=== PATIENT | male | born 2005 | race Two or more races ===

== ENCOUNTER 2024-09-02 21:22 | Inpatient (IN) | payer SELFPAY ==
[~2024-09-02] VITALS: Ht 177.8 cm; Wt 105.0 kg
--- NOTE | 2024-09-02 22:00 | ED.PDOC ---
History of present illness HPI Comments 19 y.o male presents to the ED for a chief complaint of SOB associated with dry mouth, nausea, vomiting and a cough that started 3 days ago. Patient reports family at home has been sick. Patient has increased SOB today with blood glucose of 375 at home. Patient's blood glucose reads 360 upon ED arrival. He denies any chest pain, fever, chills, diarrhea, abdominal pain, sweats or chills. Time Seen by MD: 21:54 History of present illness: Nurses Notes, Medications, Allergies Allergies: Coded Allergies: NO KNOWN ALLERGIES (Unverified , 09/02/24) Information Source: Patient Mode of Arrival: Ambulatory Timing: Days (3) Duration: Since onset Gregory: Other History of: Diabetes, Insulin use Modifying factors: Nothing Associated signs and symptoms: Other Past Medical History PAST MEDICAL HISTORY: DM Surgical History: Denies all surgeries Family History Family History: Reviewed,noncontributory to illness Social History Smoker: Non-Smoker Alcohol: Denies ETOH Use Drugs: Denies Drug Use Lives In: Home Constitutional: denies: chills, diaphoresis, fatigue, fever, malaise, sweats, weakness, others EENTM: denies: blurred vision, double vision, ear bleeding, ear discharge, ear drainage, ear pain, ear ringing, eye pain, eye redness, hearing loss, mouth pain, mouth swelling, nasal discharge, nose bleeding, nose congestion, nose pain, photophobia, tearing, throat pain, throat swelling, voice changes, others Respiratory: reports: cough, SOB at rest, shortness of breath, SOB with excertion; denies: hemoptysis, orthopnea, stridor, wheezing, others Cardiovascular: denies: chest pain, dizzy spells, diaphoresis, Dyspnea on exertion, edema, irregular heart beat, left arm pain, lightheadedness, palpitations, PND, syncope, others Gastrointestinal: reports: nausea, vomiting; denies: abdomen distended, abdominal pain, blood streaked bowels, constipated, diarrhea, dysphagia, difficulty swallowing, hematemesis, melena, poor appetite, poor fluid intake, rectal bleeding, rectal pain, others Neurological: denies: dizziness, fainting, headache, left sided numbness, left sided weakness, numbness, paresthesia, pre-existing deficit, right sided numbness, right sided weakness, seizure, speech problems, tingling, tremors, weakness, others Musculoskeletal: denies: back pain, gout, joint pain, joint swelling, muscle pain, muscle stiffness, neck pain, others Integumetry: denies: bruises, change in color, change in hair/nails, dryness, laceration, lesions, lumps, rash, wounds, others Allergic/Immunocompromised: denies: Difficulty Healing, Frequent Infections, Hives, Itching, others Hematologic/Lymphatic: denies: anemia, blood clots, easy bleeding, easy bruising, swollen glands, others Endocrine: reports: excessive thirst; denies: excessive hunger, excessive sweating, excessive urination, flushing, intolerance to cold, intolerance to heat, unexplained weight gain, unexplained weight loss, others Psychiatric: denies: anxiety, bipolar disorder, depression, hopeless, panic disorder, schizophrenia, sleepless, suicidal, others All Other Systems: Reviewed and Negative Physical Exam General Appearance: Moderate Distress HEENT: Normal ENT Inspection, Pharynx Normal, TMs Normal Neck: Full Range of Motion, Non-Tender, Normal, Normal Inspection Respiratory: Chest Non-Tender, Lungs Clear, No Accessory Muscle Use, No Respiratory Distress, Normal Breath Sounds Cardiovascular: No Edema, No JVD, No Murmur, No Gallop, Normal Peripheral Pulses, Regular Rate/Rhythm Breast Exam: Deferred Gastrointestinal: No Organomegaly, Non Tender, No Pulsatile Mass, Normal Bowel Sounds, Soft Genitalia: Deferred Pelvic: Deferred Rectal: Deferred Extremities: No calf tenderness, Normal capillary refill, Normal inspection, Normal range of motion, Non-tender, No pedal edema Musculoskeletal : Apperance: Normal Neurologic: Alert, display designer outside II-XII nml as Tested, No Motor Deficits, Normal Affect, Normal Mood, No Sensory Deficits Cerebellar Function: Normal Reflexes: Normal Skin: Dry, Normal Color, Warm Lymphatic: No Adenopathy Was a procedure done? Was a procedure done?: No Differential Diagnosis (DM) Differential Diagnosis: Dehydration, Diabetic Coma, DKA, Electrolyte Abnormality, Hyperglycemia, Hyperosmolar State X-Ray, Labs, Meds, VS Vital Signs Date Time Temp Pulse Resp B/P (MAP) Pulse Ox O2 Delivery O2 Flow Rate FiO2 09/02/24 22:01 97 Room Air* 0 21 09/02/24 22:01 97.9 140 22 175/106 (129) 97 Lab Test 09/02/24 22:13 09/02/24 22:00 Range/Units White Blood Count 7.1 4.4-10.8 10^3/uL Red Blood Count 5.62 4.5-5.90 10^6/uL Hemoglobin 18.8 H 13.5-17.5 g/dL Hematocrit 54.9 H 41.0-53.0 % Mean Corpuscular Volume 97.7 80.0-100.0 fL Mean Corpuscular Hemoglobin 33.5 H 28.0-32.0 pg Mean Corpuscular Hemoglobin Concent 34.3 32.0-36.0 g/dL Red Cell Distribution Width 12.8 11.8-14.3 % Platelet Count 168 140-450 10^3/uL Mean Platelet Volume 9.3 6.9-10.8 fL Neutrophils (%) (Auto) 73.6 37.0-80.0 % Lymphocytes (%) (Auto) 10.9 10.0-50.0 % Monocytes (%) (Auto) 15.2 H 0.0-12.0 % Eosinophils (%) (Auto) 0.0 0.0-7.0 % Basophils (%) (Auto) 0.3 0.0-2.0 % Neutrophils # (Auto) 5.2 1.6-8.6 10 ^3/uL Lymphocytes # (Auto) 0.8 0.4-5.4 10 ^3/uL Monocytes # (Auto) 1.1 0-1.3 10 ^3/uL Eosinophils # (Auto) 0 0-0.8 10 ^3/uL Basophils # (Auto) 0 0-0.2 10 ^3/uL Nucleated Red Blood Cells 0.2 % Sodium Level 135 L 136-145 mmol/L Potassium Level 4.0 3.5-5.1 mmol/L Chloride Level 101 98-107 mmol/L Carbon Dioxide Level < 10 *L 20-31 mmol/L Anion Gap 24.98581 H 5-15 Blood Urea Nitrogen < 5 L 9-23 mg/dL Creatinine 1.45 H 0.700-1.30 mg/dL Glomerular Filtration Rate Calc 71 >90 mL/min BUN/Creatinine Ratio 3.4 L 10.0-20.0 Serum Glucose 382 H 74-106 mg/dL Serum Osmolality Pending Calcium Level 9.7 8.7-10.4 mg/dL Phosphorus Level Pending Magnesium Level Pending Total Bilirubin 0.5 0.2-1.0 mg/dL Aspartate Amino Transferase (AST) 9 L 13-40 U/L Alanine Aminotransferase (ALT) 12 7-40 U/L Alkaline Phosphatase 182 H 46-116 U/L Total Protein 9.2 H 5.7-8.2 g/dL Albumin 5.6 H 3.2-4.8 g/dL Beta-Hydroxybutyric Acid Pending Urine Color Light-yellow Yellow Urine Clarity Clear Clear Urine pH 5.5 5.0-9.0 Urine Specific [place] 1.027 1.001-1.035 Urine Protein 2+ H Negative Urine Ketones 4+ H Negative Urine Blood Trace H Negative /uL Urine Nitrite Negative Negative Urine Bilirubin Negative Negative Urine Urobilinogen Normal Negative mg/dL Urine Leukocyte Esterase Negative Negative /uL Urine RBC <1 0 - 3 /hpf Urine WBC <1 0 - 3 /hpf Urine Squamous Epithelial Cells Few <5 /hpf Urine Bacteria None seen None Seen /hpf Urine Hyaline Casts Few 0 - 2 /lpf Urine Mucus Few None Seen Urine Glucose 4+ H Normal mg/dL Influenza Type A Antigen Pending Influenza Type B Antigen Pending SARS-CoV-2 Antigen (Rapid) Pending X-Ray, Labs, Meds, VS Comment Patient will be admitted for diabetic ketoacidosis DKA protocol started in emergency room Imaging: X-rays and CT scans were reviewed and interpreted by this provider, imaging shows no fractures and no pathological disease. Pending radiology review. Patient has prior medical visits reviewed. Med reconciliation performed Vital signs reviewed Time of 1ST Reevaluation: 21:56 Reevaluation 1ST: Unchanged Patient Education/Counseling: Diagnosis, Treatment, Prognosis Family Education/Counseling: No Family Present Departure 1 Departure Time of Disposition: 23:16 Impression: Primary Impression: DKA (diabetic ketoacidosis) Qualified Codes: E11.10 - Type 2 diabetes mellitus with ketoacidosis without coma Disposition: ADMITTED INPATIENT Condition: Guarded Critical Care Note Critical Care Time?: No Stability Stability form required: No I personally scribed for KHURRAM DICK ([email or web address]) on 09/02/24 at 22:00. Electronically submitted by Joaquina Hernandez ([facility]). KHURRAM DICK Sep 02, 2024 22:00
[2024-09-02 22:21] LABS: Urine Bacteria None Seen /hpf (None Seen)
--- NOTE | 2024-09-02 22:31 | DVH ---
CHEST RADIOGRAPH Indication: sob Technique: Single frontal view of the chest was obtained Comparison: None FINDINGS: Lines and Tubes: None Lungs: Clear Pleura: No effusion. No pneumothorax. Cardiomediastinal contours: Unremarkable Bones: Unremarkable IMPRESSION: 1. Clear lungs.
[2024-09-02 22:44] LABS: Basophils # (auto) 0 10 ^3/uL (0-0.2); Basophils % (auto) 0.3 % (0.0-2.0); Eosinophils # (auto) 0 10 ^3/uL (0-0.8); Hematocrit 54.9 % (41.0-53.0); Hemoglobin 18.8 g/dL (13.5-17.5); Lymphocytes # (auto) 0.8 10 ^3/uL (0.4-5.4); Lymphocytes % (auto) 10.9 % (10.0-50.0); Mean Corpuscular Hemoglobin 33.5 pg (28.0-32.0); Mean Corpuscular Hgb Conc. 34.3 g/dL (32.0-36.0); Mean Corpuscular Volume 97.7 fL (80.0-100.0); Monocytes # (auto) 1.1 10 ^3/uL (0-1.3); Monocytes % (auto) 15.2 % (0.0-12.0); Neutrophils # (auto) 5.2 10 ^3/uL (1.6-8.6); Neutrophils % (auto) 73.6 % (37.0-80.0); Nucleated Red Blood Cells % 0.2 %; Platelet Count (auto) 168 10^3/uL (140-450); Red Blood Cells 5.62 10^6/uL (4.5-5.90); Red Cell Distribution Width 12.8 % (11.8-14.3); White Blood Cell 7.1 10^3/uL (4.4-10.8)
[2024-09-02 22:47] LABS: Alanine Aminotransferase 12 U/L (7-40); Anion Gap 24.00001 (5-15); Calcium 9.7 mg/dL (8.7-10.4); Chloride 101 mmol/L (98-107)
[2024-09-02 22:48] LABS: Bilirubin, Total 0.5 mg/dL (0.2-1.0)
[2024-09-02 22:49] LABS: Albumin 5.6 g/dL (3.2-4.8); Alkaline Phosphatase 182 U/L (46-116); Aspartate Aminotransferase 9 U/L (13-40); BUN/Creatinine Ratio 3.4 (10.0-20.0); Blood Urea Nitrogen < 5 mg/dL (9-23); Glucose 382 mg/dL (74-106); Sodium 135 mmol/L (136-145); Total Protein 9.2 g/dL (5.7-8.2)
[2024-09-02 22:50] LABS: Carbon Dioxide < 10 mmol/L (20-31)
[2024-09-02] MEDS ORDERED: SODIUM CHLORIDE 0.9% 1,000 ML IV SCH (23:00)
[2024-09-02] MEDS ORDERED: DEXTROSE (50%) 50ML SYRG IV PRN (23:00)
[2024-09-02 23:05] LABS: Urine Blood TRACE /uL (Negative); Urine Clarity Clear (Clear); Urine Color Light-Yellow (Yellow); Urine Hyaline Cast FEW /lpf (0 - 2); Urine Mucus FEW (None Seen); Urine Protein, UAD 2+ (Negative); Urine Specific Gravity 1.027 (1.001-1.035); Urine Squamous Epithelial Cell FEW /hpf (<5); Urine Urobilinogen Normal (Negative); Urine WBC <1 /hpf (0 - 3); Urine pH 5.5 (5.0-9.0)
[2024-09-02 23:27] LABS: COVID19 ANTIGEN SOFIA FIA NEGATIVE (NEGATIVE); Rapid Influenza B Negative (Negative)
[2024-09-02 23:28] LABS: Rapid Influenza A Positive (Negative)
[2024-09-02] MEDS: SODIUM CHLORIDE 0.9% 1,000 ML IV ONE (23:36)
[2024-09-02 23:44] LABS: Magnesium 1.9 mg/dL (1.6-2.6)
[2024-09-02 23:45] LABS: Phosphorus 3.3 mg/dL (2.4-5.1)
[2024-09-02] MEDS ORDERED: MORPHINE SULFATE INJ 2 MG/ml SYRG IV PRN (23:45)
[2024-09-02] MEDS ORDERED: NITROGLYCERIN 0.4 MG SL TAB SL PRN (23:45)
[2024-09-02] MEDS: INSULIN LANTUS (GLARGINE) 1 /0.01ml (100units/ml) SC ONE (23:46)
--- NOTE | 2024-09-02 23:46 | DVHHPRES ---
History of Present Illness Resident Creating Document: NEEMA ROJO RESIDENT History of Present Illness Patient is 19-year-old male with past medical history of type 1 diabetes mellitus diagnosed at age of 13 who came to the hospital with a chief complaint of flu-like symptoms including nausea, vomiting, mild shortness of breath. As per patient he has been contacted with family members who were sick. Per patient, he has been taking insulin regularly, mainly he takes Lantus long- acting and Humalog before each meal. Given worsening flu-like symptoms patient came to the hospital for further evaluation. During initial evaluation patient blood sugar came high at trend 382, anion gap elevated at 24. Patient denying any symptoms including chest pain, cough, sputum production, fever, chills, abdominal pain, dysuria, motor weakness or sensory deficits. Patient will be started on insulin drip. We will be admitted to ICU. Patient denying any other symptoms. Past Medical History Diabetes mellitus type 1 Past Surgical History: None Family History: None Smoke: No ALCOHOL: none Drugs: None Lives: with Family Review of Systems Constitutional: No: Fever, Chills, Sweats, Weakness, Malaise, Other Eyes: No: Pain, Vision change, Conjunctivae inflammation, Eyelid inflammation, Other, Redness ENT: No: Ear pain, Ear discharge, Nose pain, Nose discharge, Nose congestion, Mouth pain, Mouth swelling, Throat pain, Throat swelling, Other Respiratory: Cough Cardiovascular: No: Chest Pain, Palpitations, Orthopnea, Paroxysmal Noc. Dyspnea, Edema, Lt Headedness, Other Gastrointestinal: Nausea, Vomiting; No: Abdominal Pain, Diarrhea, Constipation, Melena, Hematochezia, Other Genitourinary: No Dysuria, No Frequency, No Incontinence, No Hematuria, No Retention, No Other Musculoskeletal: No: other, neck pain, shoulder pain, arm pain, back pain, hand pain, leg pain, foot pain Skin: No: Rash, Lesions, Jaundice, Bruising, Other Neurological: No: Weakness, Numbness, Incoordination, Change in speech, Confusion, Seizures, Other Allergies: Coded Allergies: NO KNOWN ALLERGIES (Unverified , 09/02/24) Medications Current Medications Medications Dose Ordered Sig/Lulú Route Start Time Stop Time Status Last Admin Dose Admin Sodium Chloride 1,000 ml @ 500 mls/hr Q2H IV 09/02/24 23:00 09/03/24 02:59 Insulin Human (Reg)/Sodium Chloride 100 ml @ 0.5 mls/hr Q24H IV 09/02/24 23:00 Dextrose 50 ml UD PRN IV 09/02/24 23:00 Diagnostic Test (Pha) 1 strip Q90MIN 09/03/24 00:00 Nitroglycerin 0.4 mg Q5MINP PRN SL 09/02/24 23:45 UNV Morphine Sulfate 2 mg Q30M PRN IV 09/02/24 23:45 UNV Exam Vital Signs Vital Signs Date Time Temp Pulse Resp B/P (MAP) Pulse Ox O2 Delivery O2 Flow Rate FiO2 09/02/24 22:01 97 Room Air* 0 21 09/02/24 22:01 97.9 140 22 175/106 (129) General Appearance: Alert, Oriented X3 HEENT: Atraumatic, PERRLA Respiratory: Clear to auscultation, Normal air movement Cardiovascular: Regular rate, Normal S1, Normal S2 Abdominal: Normal bowel sounds, Soft, No tenderness Extremities: No clubbing, No cyanosis, No edema Skin: No rashes, No breakdown Neuro: Normal gait, Normal speech, Strength at 5/5 X4 ext Labs/Xrays Labs Test 09/02/24 22:13 09/02/24 22:00 Range/Units White Blood Count 7.1 4.4-10.8 10^3/uL Red Blood Count 5.62 4.5-5.90 10^6/uL Hemoglobin 18.8 H 13.5-17.5 g/dL Hematocrit 54.9 H 41.0-53.0 % Mean Corpuscular Volume 97.7 80.0-100.0 fL Mean Corpuscular Hemoglobin 33.5 H 28.0-32.0 pg Mean Corpuscular Hemoglobin Concent 34.3 32.0-36.0 g/dL Red Cell Distribution Width 12.8 11.8-14.3 % Platelet Count 168 140-450 10^3/uL Mean Platelet Volume 9.3 6.9-10.8 fL Neutrophils (%) (Auto) 73.6 37.0-80.0 % Lymphocytes (%) (Auto) 10.9 10.0-50.0 % Monocytes (%) (Auto) 15.2 H 0.0-12.0 % Eosinophils (%) (Auto) 0.0 0.0-7.0 % Basophils (%) (Auto) 0.3 0.0-2.0 % Neutrophils # (Auto) 5.2 1.6-8.6 10 ^3/uL Lymphocytes # (Auto) 0.8 0.4-5.4 10 ^3/uL Monocytes # (Auto) 1.1 0-1.3 10 ^3/uL Eosinophils # (Auto) 0 0-0.8 10 ^3/uL Basophils # (Auto) 0 0-0.2 10 ^3/uL Nucleated Red Blood Cells 0.2 % Sodium Level 135 L 136-145 mmol/L Potassium Level 4.0 3.5-5.1 mmol/L Chloride Level 101 98-107 mmol/L Carbon Dioxide Level < 10 *L 20-31 mmol/L Anion Gap 24.59042 H 5-15 Blood Urea Nitrogen < 5 L 9-23 mg/dL Creatinine 1.45 H 0.700-1.30 mg/dL Glomerular Filtration Rate Calc 71 >90 mL/min BUN/Creatinine Ratio 3.4 L 10.0-20.0 Serum Glucose 382 H 74-106 mg/dL Calcium Level 9.7 8.7-10.4 mg/dL Total Bilirubin 0.5 0.2-1.0 mg/dL Aspartate Amino Transferase (AST) 9 L 13-40 U/L Alanine Aminotransferase (ALT) 12 7-40 U/L Alkaline Phosphatase 182 H 46-116 U/L Total Protein 9.2 H 5.7-8.2 g/dL Albumin 5.6 H 3.2-4.8 g/dL Urine Color Light-yellow Yellow Urine Clarity Clear Clear Urine pH 5.5 5.0-9.0 Urine Specific [place] 1.027 1.001-1.035 Urine Protein 2+ H Negative Urine Ketones 4+ H Negative Urine Blood Trace H Negative /uL Urine Nitrite Negative Negative Urine Bilirubin Negative Negative Urine Urobilinogen Normal Negative mg/dL Urine Leukocyte Esterase Negative Negative /uL Urine RBC <1 0 - 3 /hpf Urine WBC <1 0 - 3 /hpf Urine Squamous Epithelial Cells Few <5 /hpf Urine Bacteria None seen None Seen /hpf Urine Hyaline Casts Few 0 - 2 /lpf Urine Mucus Few None Seen Urine Glucose 4+ H Normal mg/dL Influenza Type A Antigen Positive Negative Influenza Type B Antigen Negative Negative SARS-CoV-2 Antigen (Rapid) Negative NEGATIVE Assessment/Plan Assessment/Plan Diabetic ketoacidosis Uncontrolled diabetes mellitus type 1, on insulin dependent Non-anion gap metabolic acidosis Influenza A infection. MAIA likely hemodynamically mediated Severe dehydration Obesity Plan/recommendation Continue monitoring fluid status and adjust as needed. The patient has already received 2L of normal saline. Continue the insulin drip to manage hyperglycemia and reduce ketone production. Monitor blood glucose levels closely and adjust the insulin infusion rate as needed. Monitor serum potassium levels frequently. Replace potassium as needed to maintain levels within the normal range (4-5 mEq/L). Check other electrolytes (e.g., magnesium, phosphate) and replace as necessary. Continue to monitor arterial blood gases (ABG) to assess metabolic acidosis. Consider bicarbonate therapy if pH remains critically low (<6.9). Repeat basic metabolic panel (BMP) in 4 hours to reassess electrolyte levels and renal function. Monitor serum osmolality and adjust treatment as needed. Plan to transition from IV insulin to subcutaneous insulin (Lantus) once the anion gap has closed. Administer the first dose of Lantus at least 2 hours before discontinuing the insulin drip. Calculate the total daily dose (TDD) of insulin based on the patient's recent insulin requirements and divide it into basal (Lantus) and prandial (rapid- acting) insulin. Oseltamivir 75 mg p.o. b.i.d. for influenza. possible trigger of diabetic ketoacidosis Diabetic education NPO for now, can start diabetic diet. Goals of care discussed greater than 22 minutes. Full code. Plan discussed with Dr. Snyder. Plan discussed with: Patient My Orders Orders - NEEMA ROJO RESIDENT Procedure Category Date Status Time Admit ADMIT 09/02/24 Transmitted 23:44 Nitroglycerin [facility] 09/02/24 Logged Sublingual (Ntrostat 23:45 Morphine Sulfate PHA 09/02/24 Logged Injection 23:45 Oxygen By Nasal RT 09/02/24 Transmitted Cannula 23:44 Stat Ekg For Chest [facility] 09/02/24 In Process Pain 23:44 Notify Of Changes [facility] 09/02/24 In Process From Base 23:44 Riprap Worker For [facility] 09/02/24 In Process 24 Hours 23:44 Emergency Dysrhythmia [facility] 09/02/24 In Process Protocol 23:44 Rhythm Strips Once [facility] 09/02/24 In Process Every Shift 23:44 Date of Service: Sep 02, 2024 Billing Provider: SEBASTIÁN SNYDER MD Common Visit Codes: [id number] INP/OBS CARE (HIGH) NEEMA ROJO RESIDENT Sep 02, 2024 23:46 SEBASTIÁN SNYDER MD Sep 03, 2024 18:48
[2024-09-03 00:01] LABS: Base Excess -20.4 mmol/L (-2.0-3.0)
[2024-09-03] MEDS: SODIUM CHLORIDE 0.9% 1,000 ML IV ONE (00:02)
[2024-09-03] MEDS: INSULIN DRIP 100 UNIT/100ML 100 ML IV SCH ×2 (00:03→18:12)
[2024-09-03] MEDS: ACCU-CHEK COMFORT CURVE STRIP VI SCH ×3 (00:05→18:12)
[2024-09-03] MEDS: POTASSIUM CHL 20 Meq TABLET PO ONE (00:07)
[2024-09-03 00:09] VITALS: PULSE 139; RESP 27; O2SAT 98
[2024-09-03] MEDS: SODIUM CHLORIDE 0.9% 1,000 ML IV SCH ×2 (00:29→08:12)
[2024-09-03] MEDS: OSELTAMIVIR 75 MG CAP PO ONE (00:29)
[2024-09-03 05:09] LABS: Hematocrit 44.2 % (41.0-53.0); Hemoglobin 15.6 g/dL (13.5-17.5); Mean Corpuscular Hemoglobin 33.3 pg (28.0-32.0); Mean Corpuscular Hgb Conc. 35.3 g/dL (32.0-36.0); Mean Corpuscular Volume 94.3 fL (80.0-100.0); Platelet Count (auto) 149 10^3/uL (140-450); Red Blood Cells 4.69 10^6/uL (4.5-5.90); Red Cell Distribution Width 12.3 % (11.8-14.3); White Blood Cell 5.3 10^3/uL (4.4-10.8)
[2024-09-03 05:22] LABS: Anion Gap 15 (5-15); Sodium 136 mmol/L (136-145)
[2024-09-03 05:23] LABS: Calcium 9.2 mg/dL (8.7-10.4)
[2024-09-03 05:35] LABS: Band Neutrophils % (manual) 0; Basophils % (manual) 0 (0.0-2.0); Blast Cells 0; Eosinophils % (manual) 0 (0-7); Metamyelocytes % 0; Myelocytes % 0; Promyelocytes % 0; Reactive Lymphocytes 0
[2024-09-03 05:38] LABS: BUN/Creatinine Ratio 5.6 (10.0-20.0); Blood Urea Nitrogen < 5 mg/dL (9-23); Carbon Dioxide 12 mmol/L (20-31); Chloride 109 mmol/L (98-107); Glucose 151 mg/dL (74-106); Potassium 3.3 mmol/L (3.5-5.1)
[2024-09-03] MEDS: POTASSIUM CHL 20MEQ/100ML 100 ML IV SCH (07:00)
[2024-09-03] MEDS ORDERED: DEXTROSE (50%) 50ML SYRG IV PRN (07:00)
[2024-09-03] MEDS: InsuLIN REG 1unit/0.01ml Soln (100units/ml) SC SCH ×2 (08:06→21:45)
[2024-09-03] MEDS: INSULIN LANTUS (GLARGINE) 1 /0.01ml (100units/ml) SC SCH (08:14)
[2024-09-03 09:00] VITALS: PULSE 108; RESP 15; O2SAT 96
[2024-09-03] MEDS: OSELTAMIVIR 75 MG CAP PO SCH (10:19)
[2024-09-03 11:44] LABS: Chloride 106 mmol/L (98-107); Potassium 4.1 mmol/L (3.5-5.1); Sodium 136 mmol/L (136-145)
[2024-09-03 11:46] LABS: Anion Gap 19 (5-15); Calcium 9.2 mg/dL (8.7-10.4)
[2024-09-03 11:51] LABS: BUN/Creatinine Ratio 6.7 (10.0-20.0)
[2024-09-03 11:56] LABS: Blood Urea Nitrogen 6 mg/dL (9-23); Carbon Dioxide 11 mmol/L (20-31); Glucose 280 mg/dL (74-106)
[2024-09-03 13:00] LABS: Lymphocytes % (manual) 26 (10.0-50.0); Monocytes % (manual) 14 (0-12); Platelet Estimate Adequate
[2024-09-03 16:30] LABS: Chloride 106 mmol/L (98-107); Potassium 3.8 mmol/L (3.5-5.1)
[2024-09-03 16:31] LABS: Anion Gap 20 (5-15); Calcium 9.1 mg/dL (8.7-10.4)
[2024-09-03 16:36] LABS: BUN/Creatinine Ratio 4.5 (10.0-20.0)
[2024-09-03 16:37] LABS: Magnesium 1.7 mg/dL (1.6-2.6)
[2024-09-03 16:45] LABS: Blood Urea Nitrogen 5 mg/dL (9-23); Glucose 310 mg/dL (74-106); Sodium 136 mmol/L (136-145)
[2024-09-03 16:49] LABS: Carbon Dioxide 10 mmol/L (20-31)
[2024-09-03 17:23] LABS: Base Excess -12.9 mmol/L (-2.0-3.0)
[2024-09-03] MEDS: D5W/SOD CHLO 0.9% 1,000 ML IV SCH (18:12)
--- NOTE | 2024-09-03 18:41 | DVHPN2 ---
Subjective Seen and examined at bedside. Patient went back into DKA, make NPO. Cont Insulin drip. Cont IVF. Changes from previous H/P or p: No Changes Eyes: No Pain, No Vision change, No Conjunctivae inflammation, No Eyelid inflammation, No Other, No Redness ENT: No Ear pain, No Ear discharge, No Nose pain, No Nose discharge, No Nose congestion, No Mouth pain, No Mouth swelling, No Throat pain, No Throat swelling, No Other Cardiovascular: No Chest Pain, No Palpitations, No Orthopnea, No Paroxysmal Noc. Dyspnea, No Edema, No Lt Headedness, No Other Respiratory: Cough Gastrointestinal: No Nausea, No Vomiting, No Abdominal Pain, No Diarrhea, No Constipation, No Melena, No Hematochezia, No Other Genitourinary: No Dysuria, No Frequency, No Incontinence, No Hematuria, No Retention, No Other Musculoskeletal: No other, No neck pain, No shoulder pain, No arm pain, No back pain, No hand pain, No leg pain, No foot pain Skin: No Rash, No Lesions, No Jaundice, No Bruising, No Other Objective Vitals Vital Signs Date Time Temp Pulse Resp B/P (MAP) Pulse Ox O2 Delivery O2 Flow Rate FiO2 09/03/24 16:02 97 09/03/24 14:00 19 104/67 (79) 95 09/03/24 09:00 Room Air* 0 21 09/02/24 23:40 97.4 97.4 General Appearance: Alert, Oriented X3, Cooperative, No acute distress HEENT: Atraumatic Lungs: Clear to auscultation Cardiovascular: Regular rate, Normal S1, Normal S2 Abdomen: Normal bowel sounds, Soft Rectal: Deferred Psych/Mental Status: Mental status NL Medications Current Medications Medications Dose Ordered Sig/Lulú Route Start Time Stop Time Status Last Admin Dose Admin Diagnostic Test (Pha) 1 strip Q90MIN 09/03/24 00:00 09/03/24 13:30 1 STRIP Nitroglycerin 0.4 mg Q5MINP PRN SL 09/02/24 23:45 Morphine Sulfate 2 mg Q30M PRN IV 09/02/24 23:45 Oseltamivir Phosphate 75 mg Q12HR PO 09/03/24 10:00 09/08/24 09:59 09/03/24 10:19 75 MG Sodium Chloride 1,000 ml @ 100 mls/hr Q10H IV 09/03/24 07:00 09/03/24 08:12 100 MLS/HR Insulin Glargine 15 units QAM SC 09/03/24 07:00 09/03/24 08:14 15 UNITS Diagnostic Test (Pha) 1 strip ACHS 09/03/24 07:00 09/03/24 11:30 1 STRIP Insulin Human Regular HS SC 09/03/24 22:00 Insulin Human Regular AC SC 09/03/24 07:00 09/03/24 12:18 9 UNITS Dextrose 50 ml UD PRN IV 09/03/24 07:00 Insulin Human (Reg)/Sodium Chloride 100 ml @ 0.5 mls/hr Q24H IV 09/03/24 17:15 09/03/24 18:12 3 MLS/HR Diagnostic Test (Pha) 1 strip Q90MIN 09/03/24 18:00 09/03/24 18:12 1 STRIP Dextrose/Sodium Chloride 1,000 ml @ 75 mls/hr [id number] IV 09/03/24 17:15 09/03/24 18:12 75 MLS/HR Laboratory Results Laboratory Tests 09/03/24 04:32 09/03/24 15:58 Chemistry Test 09/02/24 22:13 09/03/24 04:32 09/03/24 11:10 09/03/24 15:58 Albumin 5.6 g/dL (3.2-4.8) H Calcium Level 9.7 mg/dL (8.7-10.4) 9.2 mg/dL (8.7-10.4) 9.2 mg/dL (8.7-10.4) 9.1 mg/dL (8.7-10.4) Magnesium Level 1.9 mg/dL (1.6-2.6) 1.7 mg/dL (1.6-2.6) Phosphorus Level 3.3 mg/dL (2.4-5.1) Total Protein 9.2 g/dL (5.7-8.2) H LFT Test 09/02/24 22:13 09/03/24 15:58 Alanine Aminotransferase (ALT) 12 U/L (7-40) Alkaline Phosphatase 182 U/L (46-116) H 127 U/L (46-116) H Aspartate Amino Transferase (AST) 9 U/L (13-40) L Total Bilirubin 0.5 mg/dL (0.2-1.0) Urinalysis Test 09/02/24 22:00 Urine Color Light-yellow (Yellow) Urine Clarity Clear (Clear) Urine pH 5.5 (5.0-9.0) Urine Specific [place] 1.027 (1.001-1.035) Urine Protein 2+ (Negative) H Urine Ketones 4+ (Negative) H Urine Blood Trace /uL (Negative) H Urine Nitrite Negative (Negative) Urine Bilirubin Negative (Negative) Urine Urobilinogen Normal mg/dL (Negative) Urine Leukocyte Esterase Negative /uL (Negative) Urine RBC <1 /hpf (0 - 3) Urine WBC <1 /hpf (0 - 3) Urine Squamous Epithelial Cells Few /hpf (<5) Urine Bacteria None seen /hpf (None Seen) Urine Hyaline Casts Few /lpf (0 - 2) Urine Mucus Few (None Seen) Urine Glucose 4+ mg/dL (Normal) H Blood Gas Results Test 09/02/24 23:26 09/03/24 17:18 Arterial Blood pH 7.169 (7.350-7.450) 7.318 (7.350-7.450) FiO2 % 21.0 21.0 Assessment/Plan Assessment/Plan Diabetic ketoacidosis in DM2- Patient reports he was diagnosed at the age of 13. DKA Protocol with Insulin drip Uncontrolled diabetes mellitus type 2, on insulin dependent, adjust dosage Influenza A infection- Tamiflu MAIA likely hemodynamically mediated due to VMN?- Improving Severe dehydration Obesity Critical care time 38 mins Plan discussed with: Patient My Orders Orders - SEBASTIÁN ENRIQUEZ MD Procedure Category Date Status Time Insulin Drip 100 PHA 09/03/24 In Process Unit/100ml (Myxredlin 17:15 Glucose Blood PHA 09/03/24 In Process (Accu-Chek Comfort 18:00 Abg W/ Co-Ox RT 09/03/24 Logged 17:05 D5w/Sod Chlo 0.9% PHA 09/03/24 In Process (D5w Ns 0.9%) 17:15 Npo (Nothing By DIET 09/04/24 Transmitted Mouth) Diet Breakfast Hemoglobin A1c LAB 09/03/24 Transmitted 18:36 Basic Metabolic Panel LAB 09/03/24 Transmitted 22:30 Basic Metabolic Panel LAB 09/04/24 Verified 04:00 Magnesium LAB 09/04/24 Verified 04:00 Phosphorus LAB 09/04/24 Verified 04:00 Lipid Panel LAB 09/04/24 Verified 04:00 Vitamin D, 25-Hydroxy LAB 09/03/24 Transmitted 18:36 Thyroid Stimulating LAB 09/04/24 Verified Hormone 04:00 Communication Order ORDERS 09/03/24 Transmitted 22:00 Potassium Chl Khadar PHA 09/03/24 Verified KCL 18:45 Date of Service: Sep 03, 2024 Billing Provider: SEBASTIÁN ENRIQUEZ MD Common Visit Codes: [id number] CARE 30-74 MIN SEBASTIÁN ENRIQUEZ MD Sep 03, 2024 18:41
[2024-09-03] MEDS: POTASSIUM CHL 20MEQ/100ML 100 ML IV ONE (20:34)
[2024-09-03 22:56] LABS: Anion Gap 16 (5-15); Chloride 105 mmol/L (98-107); Potassium 3.6 mmol/L (3.5-5.1); Sodium 136 mmol/L (136-145)
[2024-09-03 22:57] LABS: Calcium 9.2 mg/dL (8.7-10.4)
[2024-09-03 23:02] LABS: BUN/Creatinine Ratio 4.9 (10.0-20.0)
[2024-09-03 23:06] LABS: Blood Urea Nitrogen 5 mg/dL (9-23); Carbon Dioxide 15 mmol/L (20-31); Glucose 324 mg/dL (74-106)
[2024-09-04] MEDS: SODIUM CHLORIDE 0.9% 1,000 ML IV SCH ×2 (01:56→06:43)
[2024-09-04 03:10] LABS: Sodium 136 mmol/L (136-145)
[2024-09-04 03:11] LABS: Anion Gap 12 (5-15)
[2024-09-04 03:12] LABS: Calcium 9.3 mg/dL (8.7-10.4)
[2024-09-04 03:43] LABS: Blood Urea Nitrogen < 5 mg/dL (9-23); Carbon Dioxide 17 mmol/L (20-31); Chloride 107 mmol/L (98-107); Glucose 240 mg/dL (74-106); Potassium 3.1 mmol/L (3.5-5.1)
[2024-09-04 05:00] VITALS: BP 108/71; PULSE 79; RESP 17; TEMP 99.1; O2SAT 97
[2024-09-04 05:10] LABS: Sodium 139 mmol/L (136-145)
[2024-09-04 05:11] LABS: Anion Gap 14 (5-15); Calcium 9.1 mg/dL (8.7-10.4)
[2024-09-04] MEDS: POTASSIUM CHL 20MEQ/100ML 100 ML IV SCH ×2 (05:14→11:43)
[2024-09-04 05:16] LABS: Triglycerides 126 mg/dL (< 150)
[2024-09-04] MEDS: INSULIN LANTUS (GLARGINE) 1 /0.01ml (100units/ml) SC SCH (05:16)
[2024-09-04 05:17] LABS: Magnesium 1.8 mg/dL (1.6-2.6)
[2024-09-04 05:18] LABS: Cholesterol 163 mg/dL (< 200)
[2024-09-04 05:26] LABS: BUN/Creatinine Ratio 5.6 (10.0-20.0); Blood Urea Nitrogen < 5 mg/dL (9-23); Carbon Dioxide 17 mmol/L (20-31); Chloride 108 mmol/L (98-107); Glucose 220 mg/dL (74-106); HDL Cholesterol 31 mg/dL (40-59); LDL Cholesterol 121 mg/dL (< 100); Phosphorus 1.6 mg/dL (2.4-5.1)
[2024-09-04] MEDS: D5W/SOD CHLO 0.9% 1,000 ML IV SCH (05:48)
[2024-09-04] MEDS ORDERED: DEXTROSE (50%) 50ML SYRG IV PRN ×2 (06:30→10:45)
[2024-09-04] MEDS: InsuLIN REG 1unit/0.01ml Soln (100units/ml) SC SCH ×3 (06:43→22:53)
[2024-09-04 08:00] VITALS: PULSE 97; RESP 13; O2SAT 96
[2024-09-04] MEDS: ACCU-CHEK COMFORT CURVE STRIP VI SCH ×2 (08:57→12:20)
[2024-09-04 09:10] LABS: Sodium 139 mmol/L (136-145)
[2024-09-04 09:11] LABS: Anion Gap 13 (5-15)
[2024-09-04 09:14] LABS: Carbon Dioxide 18 mmol/L (20-31); Chloride 108 mmol/L (98-107)
[2024-09-04 09:17] LABS: BUN/Creatinine Ratio 7.5 (10.0-20.0)
[2024-09-04 09:22] LABS: Blood Urea Nitrogen 6 mg/dL (9-23); Glucose 195 mg/dL (74-106)
[2024-09-04 10:40] LABS: Magnesium 1.8 mg/dL (1.6-2.6)
[2024-09-04 10:44] LABS: Phosphorus 2.2 mg/dL (2.4-5.1)
--- NOTE | 2024-09-04 10:44 | DVHPN2 ---
Subjective Seen and examined at bedside. Off insulin drip. Downgrade to [facility]. Supplement electrolytes. Counseled on diabetic control. Will start Insulin 70/30. Changes from previous H/P or p: No Changes Eyes: No Pain, No Vision change, No Conjunctivae inflammation, No Eyelid inflammation, No Other, No Redness ENT: No Ear pain, No Ear discharge, No Nose pain, No Nose discharge, No Nose congestion, No Mouth pain, No Mouth swelling, No Throat pain, No Throat swelling, No Other Cardiovascular: No Chest Pain, No Palpitations, No Orthopnea, No Paroxysmal Noc. Dyspnea, No Edema, No Lt Headedness, No Other Respiratory: No Cough, No Dry, No Shortness of breath, No SOB with excertion, No Wheezing, No Hemoptysis, No Pleuritic Pain, No Sputum, No Other Gastrointestinal: No Nausea, No Vomiting, No Abdominal Pain, No Diarrhea, No Constipation, No Melena, No Hematochezia, No Other Genitourinary: No Dysuria, No Frequency, No Incontinence, No Hematuria, No Retention, No Other Musculoskeletal: No other, No neck pain, No shoulder pain, No arm pain, No back pain, No hand pain, No leg pain, No foot pain Skin: No Rash, No Lesions, No Jaundice, No Bruising, No Other Objective Vitals Vital Signs Date Time Temp Pulse Resp B/P (MAP) Pulse Ox O2 Delivery O2 Flow Rate FiO2 09/04/24 09:30 97 13 121/54 (76) 96 09/04/24 08:00 Room Air* 0 21 09/03/24 20:00 98.6 98.6 Intake/Output Intake and Output 09/04/24 07:00 Intake Total 1485 ml Output Total 2500 ml Balance -1015 ml Intake IV Total 1485 ml Output Urine Total 2500 ml General Appearance: Alert, Oriented X3, Cooperative, No acute distress HEENT: Atraumatic Lungs: Clear to auscultation Cardiovascular: Regular rate, Normal S1, Normal S2 Abdomen: Normal bowel sounds, Soft Rectal: Deferred Psych/Mental Status: Mental status NL Medications Current Medications Medications Dose Ordered Sig/Lulú Route Start Time Stop Time Status Last Admin Dose Admin Nitroglycerin 0.4 mg Q5MINP PRN SL 09/02/24 23:45 Morphine Sulfate 2 mg Q30M PRN IV 09/02/24 23:45 Oseltamivir Phosphate 75 mg Q12HR PO 09/03/24 10:00 09/08/24 09:59 09/04/24 10:27 75 MG Insulin Glargine 20 units QAM SC 09/04/24 05:30 09/04/24 05:16 20 UNITS Diagnostic Test (Pha) 1 strip IQ4HR 09/04/24 08:00 09/04/24 08:57 1 STRIP Dextrose 50 ml UD PRN IV 09/04/24 06:30 Sodium Chloride 1,000 ml @ 75 mls/hr [id number] IV 09/04/24 06:30 09/04/24 06:43 75 MLS/HR Potassium Chloride 100 ml @ 50 mls/hr Q2H IV 09/04/24 09:45 09/04/24 13:44 Laboratory Results Laboratory Tests 09/03/24 04:32 09/04/24 08:40 Chemistry Test 09/03/24 11:10 09/03/24 15:58 09/03/24 22:17 09/04/24 02:31 Calcium Level 9.2 mg/dL (8.7-10.4) 9.1 mg/dL (8.7-10.4) 9.2 mg/dL (8.7-10.4) 9.3 mg/dL (8.7-10.4) Magnesium Level 1.7 mg/dL (1.6-2.6) Test 09/04/24 03:30 09/04/24 08:40 Calcium Level 9.1 mg/dL (8.7-10.4) 9.0 mg/dL (8.7-10.4) Magnesium Level 1.8 mg/dL (1.6-2.6) Pending Phosphorus Level 1.6 mg/dL (2.4-5.1) L Pending Lipid panel Test 09/04/24 03:30 Cholesterol Level 163 mg/dL (< 200) HDL Cholesterol 31 mg/dL (40-59) L Triglycerides Level 126 mg/dL (< 150) LFT Test 09/03/24 15:58 Alkaline Phosphatase 127 U/L (46-116) H HgA1c, TSH Test 09/04/24 03:30 Thyroid Stimulating Hormone (TSH) 3.68 uIU/mL (0.55-4.78) Urinalysis Test 09/02/24 22:00 Urine Color Light-yellow (Yellow) Urine Clarity Clear (Clear) Urine pH 5.5 (5.0-9.0) Urine Specific [place] 1.027 (1.001-1.035) Urine Protein 2+ (Negative) H Urine Ketones 4+ (Negative) H Urine Blood Trace /uL (Negative) H Urine Nitrite Negative (Negative) Urine Bilirubin Negative (Negative) Urine Urobilinogen Normal mg/dL (Negative) Urine Leukocyte Esterase Negative /uL (Negative) Urine RBC <1 /hpf (0 - 3) Urine WBC <1 /hpf (0 - 3) Urine Squamous Epithelial Cells Few /hpf (<5) Urine Bacteria None seen /hpf (None Seen) Urine Hyaline Casts Few /lpf (0 - 2) Urine Mucus Few (None Seen) Urine Glucose 4+ mg/dL (Normal) H Blood Gas Results Test 09/03/24 17:18 Arterial Blood pH 7.318 (7.350-7.450) FiO2 % 21.0 Assessment/Plan Assessment/Plan Diabetic ketoacidosis in DM2- Patient reports he was diagnosed at the age of 13. Improving Uncontrolled diabetes mellitus type 2, on insulin dependent, adjust dosage A1c 11.5 Influenza A infection- Tamiflu MAIA likely hemodynamically mediated due to VMN?- Improving Severe dehydration Obesity Plan discussed with: Patient My Orders Orders - SEBASTIÁN ENRIQUEZ MD Procedure Category Date Status Time Abg W/ Co-Ox RT 09/03/24 Logged 17:05 Potassium Phosphate PHA 09/04/24 In Process 10:00 Basic Metabolic Panel LAB 09/04/24 Logged 13:30 Phosphorus LAB 09/04/24 In Process 09:58 Magnesium LAB 09/04/24 In Process 09:58 Glucose Blood PHA 09/04/24 Logged (Accu-Chek Comfort 11:30 Insulin R (Human) PHA 09/04/24 Logged (Insulin R) 22:00 Insulin R (Human) PHA 09/04/24 Logged (Insulin R) 11:30 Dextrose 50% Syringe PHA 09/04/24 Logged 10:45 Insulin 70/30 (Human) PHA 09/04/24 Logged (Humulin 70/30) 18:00 Basic Metabolic Panel LAB 09/05/24 Verified 04:00 Date of Service: Sep 04, 2024 Billing Provider: SEBASTIÁN ENRIQUEZ MD Common Visit Codes: [id number] INP/OBS CARE(HIGH) SEBASTIÁN ENRIQUEZ MD Sep 04, 2024 10:44
[2024-09-04] MEDS: POTASSIUM PHOSPHATE 26.4 MEQ in SODIUM CHL 0.9% 100 ML IV ONE (10:49)
[2024-09-04 14:28] LABS: Sodium 139 mmol/L (136-145)
[2024-09-04 14:29] LABS: Anion Gap 11 (5-15); Carbon Dioxide 20 mmol/L (20-31)
[2024-09-04 14:36] LABS: BUN/Creatinine Ratio 6.5 (10.0-20.0); Blood Urea Nitrogen < 5 mg/dL (9-23); Chloride 108 mmol/L (98-107); Glucose 281 mg/dL (74-106); Potassium 3.4 mmol/L (3.5-5.1)
[2024-09-04] MEDS: POTASSIUM CHL 20 Meq TABLET PO ONE (15:40)
[2024-09-04] MEDS: INSULIN 70/30 1unit/0.01ml Susp (100units/ml) SC SCH (18:11)
[2024-09-04] MEDS: ERGOCALCIFEROL 50,000 UNIT(1.25MG) CAP PO SCH (18:11)
[2024-09-04 19:45] VITALS: PULSE 89; RESP 20; O2SAT 97
[2024-09-04 22:16] VITALS: BP 131/80; PULSE 87; RESP 17; TEMP 98.6; O2SAT 97
[2024-09-04] MEDS ORDERED: INSU100I2 SC (23:45)
[2024-09-04] MEDS ORDERED: INSLANTI SC (23:45)
[2024-09-05 06:12] LABS: Chloride 105 mmol/L (98-107); Sodium 141 mmol/L (136-145)
[2024-09-05 06:13] LABS: Anion Gap 13 (5-15); Calcium 9.1 mg/dL (8.7-10.4); Carbon Dioxide 23 mmol/L (20-31)
[2024-09-05 06:16] LABS: Potassium 2.9 mmol/L (3.5-5.1)
[2024-09-05 06:34] LABS: BUN/Creatinine Ratio 8.5 (10.0-20.0); Blood Urea Nitrogen < 5 mg/dL (9-23); Glucose 243 mg/dL (74-106)
[2024-09-05 08:45] VITALS: BP 129/68; PULSE 73; RESP 16; TEMP 97.8; O2SAT 96
[2024-09-05] MEDS: MAGNESIUM OXIDE 400 MG TAB PO ONE (08:55)
[2024-09-05] MEDS: POTASSIUM CHL 20 Meq TABLET PO ONE (08:55)
[2024-09-05 11:46] VITALS: BP 124/71; PULSE 59; RESP 18; TEMP 98.7; O2SAT 100
[2024-09-05] MEDS ORDERED: TAMIFLU PO (14:48)
[2024-09-05] MEDS ORDERED: ERGO1CAP23 PO (14:48)
[2024-09-05] MEDS ORDERED: INS7030I SC (14:48)
[2024-09-05] MEDS ORDERED: POTA-228 PO (15:11)
--- NOTE | 2024-09-05 15:12 | DVHDS2 ---
Discharge Summary Date of Admission Sep 02, 2024 at 23:44 Date of Discharge: Sep 05, 2024 Admitting Diagnosis Diabetic ketoacidosis in DM2 Labs/Diagnostic Data: Laboratory Results Test 09/05/24 12:16 09/05/24 11:05 09/05/24 05:22 09/04/24 08:40 POC Glucose 249 mg/dl (70-106) Potassium Level 3.0 mmol/L (3.5-5.1) Sodium Level 141 mmol/L (136-145) Chloride Level 105 mmol/L (98-107) Carbon Dioxide Level 23 mmol/L (20-31) Anion Gap 13 (5-15) Blood Urea Nitrogen < 5 mg/dL (9-23) Creatinine 0.59 mg/dL (0.700-1.30) Glomerular Filtration Rate Calc 142 mL/min (>90) BUN/Creatinine Ratio 8.5 (10.0-20.0) Serum Glucose 243 mg/dL (74-106) Calcium Level 9.1 mg/dL (8.7-10.4) Phosphorus Level 2.2 mg/dL (2.4-5.1) Magnesium Level 1.8 mg/dL (1.6-2.6) Test 09/04/24 03:30 09/03/24 17:18 09/03/24 15:58 09/03/24 04:32 Triglycerides Level 126 mg/dL (< 150) Cholesterol Level 163 mg/dL (< 200) LDL Cholesterol 121 mg/dL (< 100) HDL Cholesterol 31 mg/dL (40-59) Thyroid Stimulating Hormone (TSH) 3.68 uIU/mL (0.55-4.78) Blood Gas Specimen Type Arterial Blood Gas Sample Site Left radial Blood Gas Patient Temperature 37.0 Arterial Blood Date Drawn [id number] Arterial Blood pH 7.318 (7.350-7.450) Arterial Blood Partial Pressure CO2 21.6 mmHg (35.0-48.0) Arterial Blood Partial Pressure O2 99.9 mmHg (83.0-108.0) Arterial Blood HCO3 10.8 mmol/L (21.0-28.0) Arterial Blood Oxygen Saturation 97.8 % (94.0-98.0) Arterial Blood Base Excess -12.9 mmol/L (-2.0-3.0) Arterial Blood Oxyhemoglobin 96.7 % (94.0-98.0) Arterial Blood Carboxyhemoglobin 0.4 % (0.5-1.5) Arterial Blood Methemoglobin 0.7 % (0.0-1.5) Missael Test Yes Blood Gas Total Hemoglobin 15.30 g/dL (13.5-17.5) Blood Gas Liter Flow 0.00 Blood Gas Modality Room air FiO2 % 21.0 Alkaline Phosphatase 127 U/L (46-116) White Blood Count 5.3 10^3/uL (4.4-10.8) Red Blood Count 4.69 10^6/uL (4.5-5.90) Hemoglobin 15.6 g/dL (13.5-17.5) Hematocrit 44.2 % (41.0-53.0) Mean Corpuscular Volume 94.3 fL (80.0-100.0) Mean Corpuscular Hemoglobin 33.3 pg (28.0-32.0) Mean Corpuscular Hemoglobin Concent 35.3 g/dL (32.0-36.0) Red Cell Distribution Width 12.3 % (11.8-14.3) Platelet Count 149 10^3/uL (140-450) Mean Platelet Volume 8.7 fL (6.9-10.8) Neutrophils (%) (Auto) % (37.0-80.0) Lymphocytes (%) (Auto) % (10.0-50.0) Monocytes (%) (Auto) % (0.0-12.0) Basophils (%) (Auto) % (0.0-2.0) Neutrophils # (Auto) 10 ^3/uL (1.6-8.6) Lymphocytes # (Auto) 10 ^3/uL (0.4-5.4) Monocytes # (Auto) 10 ^3/uL (0-1.3) Differential Total Cells Counted 100.0 (100) Neutrophils % (Manual) 60 (37.0-80.0) Band Neutrophils % (Manual) 0 Lymphocytes % (Manual) 26 (10.0-50.0) Monocytes % (Manual) 14 (0-12) Eosinophils % (Manual) 0 (0-7) Basophils % (Manual) 0 (0.0-2.0) Metamyelocytes % (manual) 0 Myelocytes % (Manual) 0 Promyelocytes % (Manual) 0 Blast Cells % (Manual) 0 Reactive Lymphocytes 0 Platelet Estimate Adequate Hemoglobin A1c 11.5 % A1C (<5.7) Vitamin D 25-Hydroxy 8.4 ng/mL (30.0-100) Test 09/02/24 23:26 09/02/24 22:13 09/02/24 22:00 Blood Gas Critical Value Read Back Yes Blood Gas Notified Whom Manager Testing fredo limon Blood Gas Notified Time [id number] Blood Gas Notified By Rt b ramesh Eosinophils (%) (Auto) 0.0 % (0.0-7.0) Eosinophils # (Auto) 0 10 ^3/uL (0-0.8) Basophils # (Auto) 0 10 ^3/uL (0-0.2) Nucleated Red Blood Cells 0.2 % Serum Osmolality 313 mOsm/kg (278-298) Total Bilirubin 0.5 mg/dL (0.2-1.0) Aspartate Amino Transferase (AST) 9 U/L (13-40) Alanine Aminotransferase (ALT) 12 U/L (7-40) Total Protein 9.2 g/dL (5.7-8.2) Albumin 5.6 g/dL (3.2-4.8) Beta-Hydroxybutyric Acid > 4.500 mmol/L (< 0.4) Urine Color Light-yellow (Yellow) Urine Clarity Clear (Clear) Urine pH 5.5 (5.0-9.0) Urine Specific [place] 1.027 (1.001-1.035) Urine Protein 2+ (Negative) Urine Ketones 4+ (Negative) Urine Blood Trace /uL (Negative) Urine Nitrite Negative (Negative) Urine Bilirubin Negative (Negative) Urine Urobilinogen Normal mg/dL (Negative) Urine Leukocyte Esterase Negative /uL (Negative) Urine RBC <1 /hpf (0 - 3) Urine WBC <1 /hpf (0 - 3) Urine Squamous Epithelial Cells Few /hpf (<5) Urine Bacteria None seen /hpf (None Seen) Urine Hyaline Casts Few /lpf (0 - 2) Urine Mucus Few (None Seen) Urine Glucose 4+ mg/dL (Normal) Influenza Type A Antigen Positive (Negative) Influenza Type B Antigen Negative (Negative) SARS-CoV-2 Antigen (Rapid) Negative (NEGATIVE) Other Laboratory Tests 09/05/24 11:05 09/05/24 05:22 09/03/24 04:32 Brief Hx & Hospital Course: Patient is 19-year-old male with past medical history of type 2 diabetes mellitus diagnosed at age of 13 who came to the hospital with a chief complaint of flu-like symptoms including nausea, vomiting, mild shortness of breath. As per patient he has been contacted with family members who were sick. Per patient, he has been taking insulin regularly, mainly he takes Lantus long- acting and Humalog before each meal. Given worsening flu-like symptoms patient came to the hospital for further evaluation. During initial evaluation patient blood sugar came high at trend 382, anion gap elevated at 24. Patient was treated for DKA with Insulin drip. Started on Insulin 70/30, counseled extensively to monitor blood glucose levels and take insulin at home. Potassium was supplemented this morning. Patient is adamant about going home today. Condition at Discharge: Poor Final Diagnosis/Problems List Diabetic ketoacidosis in DM2- Patient reports he was diagnosed at the age of 13 Uncontrolled diabetes mellitus type 2, on insulin dependent, adjust dosage A1c 11.5 Influenza A infection- Tamiflu MAIA likely hemodynamically mediated due to VMN?- Improving Severe dehydration Obesity Discharge Disposition: Home Discharge Instruct/Medications Diet: Consistent carbohydrate Activity: Light activity Follow Up/Referral: DC Clinic in 1 week Medications: See [facility] Discharge Statement: "Patient was advised to return to the ER or call 911 if any headaches, dizziness, shortness of breath, chest pain, abdominal pain, bleeding, fevers, or worsening of medical condition. Patient was counseled about treatment plan, medications, possible side effects, patientverbalized understanding. All questions were answered to the best of my ability. This discharge took greater then 30 minutes in planning, reviewing documentation, counseling the patient, and discussing with other team members." ASSESSMENT ASSESSMENT Assessment Date of Service: Sep 05, 2024 Billing Provider: SEBASTIÁN ENRIQUEZ MD Common Visit Codes: [id number] DISCH DAY >30min SEBASTIÁN ENRIQUEZ MD Sep 05, 2024 15:12
[2024-09-05 16:46] VITALS: BP 120/63; PULSE 70; RESP 16; TEMP 97.3; O2SAT 97
== END 2024-09-05 17:55 | disposition home or self-care (01) | DRG 637 ==
LOC: EDSEX 21:22 → ER 21:22 → TELE 23:44 → EAST 09-04 22:16
PROVIDERS: ADMIT Internal Medicine; ATTEND Internal Medicine
DX: E11.10 Type 2 diabetes mellitus with ketoacidosis without coma (principal); N17.0 Acute kidney failure with tubular necrosis; E86.0 Dehydration; Z20.822 Contact with and (suspected) exposure to COVID-19; E66.9 Obesity, unspecified; J10.1 Influenza due to other identified influenza virus with other respiratory manifestations; Z79.4 Long term (current) use of insulin; Z68.33 Body mass index [BMI] 33.0-33.9, adult
CPT/HCPCS: 36415; 36600; 71045; 80048; 80053; 80061; 81001; 82010; 82306; 82805; 82962; 83036; 83735; 83930; 84075; 84100; 84132; 84443; 85007; 85025; 85027; 87426; 87804; 96360; 96372; G0378; J1815; J3480